=== PATIENT | male | born 1980 | race Caucasian/White ===

== ENCOUNTER → 2018-03-09 13:00 | Outpatient (CLI) | payer OTHER, SELFPAY ==
[2018-03-09 14:41] LABS: Vitamin B12 495 pg/mL (211-911)
[2018-03-15 15:22] LABS: Testosterone, % Free 2.73 % (1.50-4.20); Testosterone, Free 14.55 ng/dL (5.00-21.00)
[2018-03-16 11:15] LABS: Testosterone, Total 533 ng/dL (264-916)
== END ==
PROVIDERS: Family Provider Family Medicine; PCP Family Medicine; Visit Provider Family Medicine
DX: N52.9 Male erectile dysfunction, unspecified (principal); F32.89 Other specified depressive episodes
CPT/HCPCS: 36415; 81291; 82607; 82746; 84402; 84403

== ENCOUNTER → 2018-08-10 16:21 | Outpatient (CLI) | payer OTHER, SELFPAY ==
[2016-06-24 17:11] VITALS: BMI 30.7
[2018-08-10 18:51] LABS: ALB/GLOB Ratio 1.2 RATIO (0.9-2.4); AST(SGOT) 13 U/L (15-37); Alanine Aminotransfer ALT/SGPT 24 U/L (16-61); Albumin, Serum 4.1 g/dL (3.2-5.0); Alkaline Phosphatase 94 U/L (45-117); Anion Gap 8 (5-15); BUN 9 mg/dL (7-18); BUN/Creat Ratio 8.6 RATIO (10-20); CRP < 2.90 mg/L (0.0-3.0); Calcium,Total 8.7 mg/dL (8.5-10.1); Chloride 106 mmol/L (98-107); Creatinine, Serum 1.05 mg/dL (0.70-1.30); EST Glomerular Filtration Rate 84 mL/min (>60); Est Glom Filt Rate - Afr Amer 102 mL/min (>60); Ferritin 169 ng/mL (26-388); Globulin 3.5 g/dL (2.2-4.2); Glucose 79 mg/dL (74-106); Lipase 142 U/L (73-393); Potassium 3.9 mmol/L (3.5-5.1); Protein, Total 7.6 g/dL (6.4-8.2); Sodium Level 143 mmol/L (136-145)
[2018-08-10 19:15] LABS: Hematocrit 45.5 % (40-54); Hemoglobin 14.7 g/dl (13.0-16.5); Mean Corp Hgb Conc 32.3 g/gl (32-36); Mean Corpuscular Hgb 28.5 pg (27.0-32.0); Mean Corpuscular Volume 88.2 fL (80-94); Mean Platelet Vol. 10.1 fl (6.2-12.0); Platelet Count 266 K/mm3 (150-450); RBC Distribution Width CV 12.6 % (11.6-14.6); RBC Distribution Width SD 40.5 fl (35.1-43.9); Red Blood Count 5.16 M/mm3 (4.6-6.2); White Blood Count 9.7 K/mm3 (4.4-11.0)
[2018-08-10 19:18] LABS: Scan Indicated on CBC? Y/N NO
[2018-08-12 10:32] LABS: H. Pylori Antibody (IgG) 0.19 (0.00-0.79)
== END ==
PROVIDERS: Family Provider Family Medicine; PCP Family Medicine; Referring Provider Family Medicine; Visit Provider Family Medicine
DX: R10.13 Epigastric pain (principal)
CPT/HCPCS: 36415; 80053; 82728; 83690; 84443; 85027; 86140; 86677

== ENCOUNTER → 2018-08-13 10:42 | Outpatient (CLI) | payer OTHER, SELFPAY ==
--- NOTE | 2018-08-13 10:44 | US_ITS ---
STUDY: ABDOMINAL ULTRASOUND REASON FOR EXAM: Male, 38 years old. Dyspepsia TECHNIQUE: Transabdominal ultrasound was performed with real-time and static linder scale imaging. TECHNICAL QUALITY: Adequate. COMPARISON: None. FINDINGS: Liver: The liver measures 12.2 cm. There is increased echogenicity of the liver. The bile ducts are within normal limits. There is hepatic color flow. The direction of portal flow is hepatopetal. There is no demonstrated mass lesion. Portal vein measurement: Gallbladder: Normal distended gallbladder. The gallbladder wall measures 2 mm. There is a negative sonographic Sharma's sign. There is no pericholecystic fluid. There are no gallstones. Common Bile Duct (C.B.D.): The common bile duct measures 2.7 mm. Pancreas: There is normal echogenicity of the visualized pancreas. There is no demonstrated pancreatic mass or cyst. Spleen: Normal size of the spleen. The spleen measures 12 cm. Right Kidney: Normal size of the right kidney. The right kidney measures 11.5 cm. Normal renal cortex. The right cortex measures 1.9 cm. There is no demonstrated renal mass or cyst. There is no right hydronephrosis. There is a nonshadowing calculus measuring 3 mm. Left Kidney: Normal size of the left kidney. The left kidney measures 11.3 cm. Normal renal cortex. The left cortex measures 1.7 cm. There is no demonstrated renal mass or cyst. There is no left hydronephrosis. Aorta: Nonaneurysmal I.V.C.: The IVC is patent. There is no ascites. US/Abdomen Complete IMPRESSION: 1. No gallstones or biliary dilation. 2. Increased echo pattern of the liver is nonspecific but most commonly associated with hepatic steatosis. 3. Incomplete visualization of the pancreas. 4. 3 mm right renal calcification may represent nonobstructing calculus. Electronically Signed: Mahamed Hubbard MD at 20:36 EST , Service support ,
== END ==
PROVIDERS: Family Provider Family Medicine; PCP Family Medicine; Referring Provider Family Medicine; Visit Provider Family Medicine
DX: R10.13 Epigastric pain (principal)
CPT/HCPCS: 76700

== ENCOUNTER → 2018-08-29 09:10 | Outpatient (CLI) | payer OTHER, SELFPAY ==
[2018-08-18 15:28] VITALS: BMI 28.6
--- NOTE | 2018-08-29 09:12 | NM_ITS ---
CLINICAL: 38-year-old male with reported history of postprandial nausea. RADIONUCLIDE HEPATOBILIARY SCINTIGRAPHY COMPARISON: Abdominal ultrasound report 08/13/2018 FINDINGS: Following the intravenous administration of 5.6 mCi of 99m Tc Mebrofenin, hepatobiliary images reveal: 1. Relatively prompt and homogeneous radiopharmaceutical concentration is noted by a normal sized liver. No parenchymal defects are identified. 2. Gallbladder activity is identified at 5 minutes post radiopharmaceutical administration. 3. Small intestinal tract is observed at 30 minutes following tracer injection. 4. Washout of the radiopharmaceutical by the hepatic parenchyma appears qualitatively normal. Cholecystokinin (0.02 ug/kg) was administered intravenously over a 30-minute period. The post CCK gallbladder ejection fraction calculated at 31 minutes following Cholecystokinin administration was noted to be 26.0 % (normal greater than 35%). [place]/Hepatobilliary Img w/Pharm Int IMPRESSION: 1. ABNORMAL 99m Tc Mebrofenin hepatobiliary imaging examination with Cholecystokinin. A. A gallbladder ejection fraction calculated to be less than 35% following the administration of Cholecystokinin is consistent with the presence of functional hepatobiliary disease (gallbladder and/or sphincter of Oddi dyskinesia) and/or organic hepatobiliary disease (chronic acalculous cholecystitis and/or cystic duct syndrome) in patients with intermediate to high pretest probabilities of hepatobiliary illness. (Karmen Baires et al, Journal of Nuclear Medicine 32:1695, 1990). Electronically Signed: Rojas Bonilla DO at 23:39 EST Tel , Service support ,
--- OUTSIDE RECORDS SUMMARY | 2018-10-31 16:16 | XMS RPT_ITS ---
:1980 Author Organization [facility] Care Team Providers Name Role Phone Gómez Crane Attending Unavailable Crane, Gómez Referring Unavailable Crane, Gómez Primary Care Unavailable Crane, Gómez Attending Unavailable Crane, Gómez Referring Unavailable Crane, Gómez Primary Care Unavailable Colby, Vic Attending Unavailable Crane, Gómez Referring Unavailable Chamisal, Vic Attending Unavailable Colby, Vic Referring Unavailable Crane, Gómez Primary Care Unavailable Colby, Vic Attending Unavailable Crane, Gómez Referring Unavailable Crane, Gómez Attending Unavailable Crane, Gómez Referring Unavailable Crane, Gómez Primary Care Unavailable PROBLEMS PROBLEMS DATE TYPE CONDITION / CODE ATTENDING STATUS SOURCE 09/02/2018 Unknown K82.8 - Other ColbyVic anton Active [place] specified Community diseases of Hospital gallbladder / Repository K82.8(ICD-10) 09/02/2018 Unknown R11.0 - Nausea / ColbyVic anton Active [place] R11.0(ICD-10) Community Hospital Repository 09/02/2018 Unknown R14.0 - Abdominal ColbyVic Active [place] distension Community (gaseous) / Hospital R14.0(ICD-10) Repository 09/02/2018 Unknown R63.4 - Abnormal Colby, Vic Active [facility] weight loss / Community R63.4(ICD-10) Hospital Repository 08/18/2018 Unknown R10.11 - Right Vic Bowman Active [place] upper quadrant Community pain / Hospital R10.11(ICD-10) Repository 08/10/2018 Unknown R10.13 - Gómez Crane Active [facility] Epigastric pain / Community R10.13(ICD-10) Hospital Repository 03/09/2018 Unknown N52.9 - Male Farhad Craneic Active [facility] erectile Community dysfunction, Hospital unspecified / Repository N52.9(ICD-10) 03/09/2018 Unknown F32.89 - Other Royce Gómez Active [facility] specified Community depressive Hospital episodes / Repository F32.89(ICD-10) PROCEDURES PROCEDURES No Procedure Records FoundRESULTS RESULTS SURGERY VISIT REPORT Observed: 09/02/2018 Status: F Source: [place] 9:07 AM [facility] [facility] [place] [address] [place] [address]. [address] [place] [address] OFFICE VISIT Date of Service: 09/02/18 MR#: [id number] Acct: [id number] Name: VIANEY GOLDEN Rep #: [id number] : 1980 Provider: Vic Bowman MD Age/Sex: 38/M Location: [facility] Status: Signed Intake Vital Signs09/02/18 Body Mass Index (BMI) 28.6 09/02/18 Height 5 ft 10.25 in 09/02/18 Weight: 201 lb Intake Visit Reasons: HIDA SCAN Results 08/29 Chief Complaint: epigastric pressure, nausea, bloating Confectionery Cooker Required: No Is patient in pain?: No Allergies No Known Allergies Allergy (Verified 09/02/18 08:52) Medications ranitidine 150 mg tablet 150 mg PO DAILY PRN 08/18/18 [History Confirmed 09/02/18] PFSH Medical History Anxiety (Acute) Asthma (Acute) Change in bowel habits (Acute) GERD (gastroesophageal reflux disease) (Acute) Surgical History History of oral surgery (Acute) Family History Father Hypertension Social History Smoking Status: Never smoker HPI HPI HPI: VIANEY GOLDEN, is a 38 M who presents to the office today for evaluation of nausea after meals. In addition he is also been very bloated and gassy. This is been going on for the last few months. He has not been complaining of any pain going into his back. He states it really does not matter what he eats the symptoms are almost always present. He has also had approximately a 20 pound weight loss in the last 3 months secondary to food aversion. He has been complaining of some epigastric pressure. He was given a prescription for Zantac but has not taken this. He has not had any previous endoscopies. Patient recently underwent a HIDA scan with ejection fraction showing the ejection fraction to be 26%. I am now going to recommend that he undergo a laparoscopic cholecystectomy. ROS General General: Yes weight change and fatigue; no appetite, colon cancer, breast cancer or weakness HEENT HEENT: No difficulty swallowing, eye injury, eye surgery, swollen glands or hoarseness Endo Endocrine: No thyroid disease, diabetes mellitus, thyroid cancer, Hair loss, heat intolerance or cold intolerance Cardio Cardiovascular: No murmur, pacemaker, heart disease, atrial fibrillation, high blood pressure, heart attack, heart stent, palpitations, shortness of breat with exertion or chest pain Psych Psychiatric: Yes anxiety; no depression or hearing voices Resp Respiratory: No shortness of breath, No sleep apnea, No cough, No COPD, Yes asthma, No emphysema, No wheezing Gastro Gastrointestinal: Yes abdominal pain, Yes nausea or vomiting, Yes diarrhea, Yes constipation, No blood in stool, Yes acid reflux, No hemorrhoids, No ulcers, No gallbladder problem, No black,tarry stools Ki Hematologic: No blood thinners, No blood disorders, No bleeding, No anemia, No blood clots Neuro Neurologic: No weakness Exam Const General: well developed, no acute distress, well hydrated Orientation: oriented to person, oriented to place, oriented to time [facility] Head: normocephalic, atraumatic Ears: external ears normal Mouth: moist mucous membranes Eyes Sclera: sclerae normal Pupils: normal by confrontation Neck Neck: no lymphadenopathy noted Neck mass: No Thyroid: symmetrical, thyroid normal Chest Chest palpation AND inspection: normal inspection of the chest Resp Effort AND Inspection: normal respiratory effort Auscultation: clear to auscultation bilaterally Percussion: percussion normal Cardio Rate: regular rate Rhythm: regular rhythm Heart Sounds: no murmurs GI Palpation: soft, tender, no masses, no hepatosplenomegaly Auscultation: normal bowel sounds Rectal Exam: other Other: Rectal exam deferred. Extrem General: no clubbing, cyanosis or edema, normal to inspection Assessment AND Plan Problems 1. Biliary dyskinesia K82.8 2. Nausea R11.0 3. Abdominal bloating R14.0 4. Weight loss, non-intentional R63.4 Plan Reviewed the anatomy with the patient and discussed the procedure: laparoscopic cholecystectomy with possible cholangiograms, possible open. Review risks including but not limited to bleeding, infection, hernia, bile leak, retained gallstones requiring another procedure ERCP- Endoscopic Retrograde Cholangiopancreatography, injury to another organ (bile ducts, common bile duct, small bowel, etc.) and conversion to an open procedure. All questions were answered. Coding Level of Care Code Off vis,est,level 3 Diagnoses Biliary dyskinesia K82.8 Nausea R11.0 Abdominal bloating R14.0 Weight loss, non-intentional R63.4 09/02/18 0907 <Electronically signed by Vic Bowman MD> Date Vic Bowman MD Cosigner Signature: Date (if applicable) CC: Gómez Crane MD HEPATOBILLIARY IMG Observed: 08/29/2018 Status: F Source: [place] W/PHARM INT 9:12 AM [facility] [place] [facility] Imaging Services [facility] [place] [address] Hepatobilliary Img w/Pharm Int MR#: [id number] Acct: [id number] Name: VIANEY GOLDEN Rep #: [id number] : 1980 M 38 From: Rojas Bonilla DO PCP: Gómez Crane MD Status: REG CLI Study: Hepatobilliary Img w/Pharm Int Date of Exam: 08/29/18 Exam# [id number] Ordering Dr: Ayde Logan PA-C CLINICAL: 38-year-old male with reported history of postprandial nausea. RADIONUCLIDE HEPATOBILIARY SCINTIGRAPHY COMPARISON: Abdominal ultrasound report 08/13/2018 FINDINGS: Following the intravenous administration of 5.6 mCi of 99m Tc Mebrofenin, hepatobiliary images reveal: 1. Relatively prompt and homogeneous radiopharmaceutical concentration is noted by a normal sized liver. No parenchymal defects are identified. 2. Gallbladder activity is identified at 5 minutes post radiopharmaceutical administration. 3. Small intestinal tract is observed at 30 minutes following tracer injection. 4. Washout of the radiopharmaceutical by the hepatic parenchyma appears qualitatively normal. Cholecystokinin (0.02 ug/kg) was administered intravenously over a 30-minute period. The post CCK gallbladder ejection fraction calculated at 31 minutes following Cholecystokinin administration was noted to be 26.0 % (normal greater than 35%). NM/Hepatobilliary Img w/Pharm Int IMPRESSION: 1. ABNORMAL 99m Tc Mebrofenin hepatobiliary imaging examination with Cholecystokinin. A. A gallbladder ejection fraction calculated to be less than 35% following the administration of Cholecystokinin is consistent with the presence of functional hepatobiliary disease (gallbladder and/or sphincter of Oddi dyskinesia) and/or organic hepatobiliary disease (chronic acalculous cholecystitis and/or cystic duct syndrome) in patients with intermediate to high pretest probabilities of hepatobiliary illness. (Karmen Baires et al, Journal of Nuclear Medicine 32:1695, 1991). Electronically Signed: Rojas Bonilla DO at 23:39 EST Tel , Service support , CC: Ayde Logan PA-C; Vic Bowman MD; Gómez Crane MD Shaft Sinker: Signed SURGERY VISIT REPORT Observed: 08/18/2018 Status: F Source: [place] 4:21 PM [facility] [place] [facility] [address] [place] [address]. [address] [place] [address] OFFICE VISIT Date of Service: 08/18/18 MR#: [id number] Acct: [id number] Name: VIANEY GOLDEN Rep #: [id number] : 1980 Provider: Vic Bowman MD Age/Sex: 38/M Location: [facility] Status: Signed Intake Vital Signs08/18/18 Blood Pressure 168/108 H Intake Visit Reasons: EGD Consult Chief Complaint: epigastric pressure, nausea, bloating Confectionery Cooker Required: No Is patient in pain?: No Allergies No Known Allergies Allergy (Verified 08/18/18 15:29) Medications ranitidine 150 mg tablet 150 mg PO DAILY PRN 08/18/18 [History Confirmed 08/18/18] PFSH Medical History Anxiety (Acute) Asthma (Acute) Change in bowel habits (Acute) GERD (gastroesophageal reflux disease) (Acute) Surgical History History of oral surgery (Acute) Family History Father Hypertension Social History Smoking Status: Never smoker HPI HPI HPI: VIANEY GOLDEN, is a 38 M who presents to the office today for for evaluation of nausea after meals. In addition he is also been very bloated and gassy. This is been going on for the last few months. He has not been complaining of any pain going into his back. He states it really does not matter what he eats the symptoms are almost always present. He has also had approximately a 20 pound weight loss in the last 3 months secondary to food aversion. He has been complaining of some epigastric pressure. He was given a prescription for Zantac but has not taken this. He has not had any previous endoscopies. He has never had a history of gastric ulcers in the past. He has not been on any NSAIDs and he has no alcohol etiology for this. Gallbladder ultrasound was performed which showed a normal distended gallbladder. The gallbladder wall measured 2 mm. There is a negative sonographic Sharma sign. There was no pericholecystic fluid. And there were no gallstones. His common bile duct measured 2.7 mm. ROS General General: Yes weight change and fatigue; no appetite, colon cancer, breast cancer or weakness HEENT HEENT: No difficulty swallowing, eye injury, eye surgery, swollen glands or hoarseness Endo Endocrine: No thyroid disease, diabetes mellitus, thyroid cancer, Hair loss, heat intolerance or cold intolerance Cardio Cardiovascular: No murmur, pacemaker, heart disease, atrial fibrillation, high blood pressure, heart attack, heart stent, palpitations, shortness of breat with exertion or chest pain Psych Psychiatric: Yes anxiety; no depression or hearing voices Resp Respiratory: No shortness of breath, No sleep apnea, No cough, No COPD, Yes asthma, No emphysema, No wheezing Gastro Gastrointestinal: Yes abdominal pain, Yes nausea or vomiting, Yes diarrhea, Yes constipation, No blood in stool, Yes acid reflux, No hemorrhoids, No ulcers, No gallbladder problem, No black,tarry stools Ki Hematologic: No blood thinners, No blood disorders, No bleeding, No anemia, No blood clots Neuro Neurologic: No weakness Exam Const General: well developed, no acute distress, well hydrated Orientation: oriented to person, oriented to place, oriented to time [facility] Head: normocephalic, atraumatic Ears: external ears normal Mouth: moist mucous membranes Eyes Sclera: sclerae normal Pupils: normal by confrontation Neck Neck: no lymphadenopathy noted Neck mass: No Thyroid: symmetrical, thyroid normal Chest Chest palpation AND inspection: normal inspection of the chest Resp Effort AND Inspection: normal respiratory effort Auscultation: clear to auscultation bilaterally Percussion: percussion normal Cardio Rate: regular rate Rhythm: regular rhythm Heart Sounds: no murmurs GI Palpation: soft, tender, no masses, no hepatosplenomegaly Rectal Exam: other Other: A Hernia [] on exam. Rectal exam deferred. Extrem General: no clubbing, cyanosis or edema, normal to inspection Assessment AND Plan Problems 1. Nausea R11.0 2. Abdominal bloating R14.0 3. Weight loss, non-intentional R63.4 Plan At this point I think the best thing to do is obtain a HIDA scan with ejection fraction. If this is obviously abnormal then removal of his gallbladder would seem appropriate. However if it is normal then I think proceeding with an upper and lower endoscopy with random biopsies would be appropriate. I will see him back after the HIDA scan with ejection for him. Orders Orders: Coding Level of Care Code Off vis,new,level 3 Diagnoses Nausea R11.0 Abdominal bloating R14.0 Weight loss, non-intentional R63.4 08/18/18 1621 <Electronically signed by Vic Bowman MD> Date Vic Bowman MD Cosigner Signature: Date (if applicable) CC: Gómez Crane MD ABDOMEN COMPLETE Observed: 08/13/2018 Status: F Source: [place] 10:45 AM [facility] [facility] [place] [facility] Imaging Services [address] [place] [address] Abdomen Complete MR#: [id number] Acct: [id number] Name: VIANEY GOLDEN Adalberto Rep #: [id number] : 1980 M 38 From: Mahamed Hubbard MD PCP: Gómez Crane MD Status: REG CLI Study: Abdomen Complete Date of Exam: 08/13/18 Exam# [id number] Ordering Dr: Gómez Crane MD STUDY: ABDOMINAL ULTRASOUND REASON FOR EXAM: Male, 38 years old. Dyspepsia TECHNIQUE: Transabdominal ultrasound was performed with real-time and static linder scale imaging. TECHNICAL QUALITY: Adequate. COMPARISON: None. FINDINGS: Liver: The liver measures 12.2 cm. There is increased echogenicity of the liver. The bile ducts are within normal limits. There is hepatic color flow. The direction of portal flow is hepatopetal. There is no demonstrated mass lesion. Portal vein measurement: Gallbladder: Normal distended gallbladder. The gallbladder wall measures 2 mm. There is a negative sonographic Sharma's sign. There is no pericholecystic fluid. There are no gallstones. Common Bile Duct (C.B.D.): The common bile duct measures 2.7 mm. Pancreas: There is normal echogenicity of the visualized pancreas. There is no demonstrated pancreatic mass or cyst. Spleen: Normal size of the spleen. The spleen measures 12 cm. Right Kidney: Normal size of the right kidney. The right kidney measures 11.5 cm. Normal renal cortex. The right cortex measures 1.9 cm. There is no demonstrated renal mass or cyst. There is no right hydronephrosis. There is a nonshadowing calculus measuring 3 mm. Left Kidney: Normal size of the left kidney. The left kidney measures 11.3 cm. Normal renal cortex. The left cortex measures 1.7 cm. There is no demonstrated renal mass or cyst. There is no left hydronephrosis. Aorta: Nonaneurysmal I.V.C.: The IVC is patent. There is no ascites. US/Abdomen Complete IMPRESSION: 1. No gallstones or biliary dilation. 2. Increased echo pattern of the liver is nonspecific but most commonly associated with hepatic steatosis. 3. Incomplete visualization of the pancreas. 4. 3 mm right renal calcification may represent nonobstructing calculus. Electronically Signed: Mahamed Hubbard MD at 20:36 EST , Service support , CC: Gómez Crane MD Shaft Sinker: Signed COMPREHENSIVE METABOLIC Collected: 08/10/2018 Status: F Source: [place] PERLITA 4:26 PM [facility] [place] TYPE CODE TESTS RESULT OUT OF RANGE REFERENCE UNITS LAB L501.0100 74-106 mg/dL Normal GLU 79 Result Comment: Please note revised GLUCOSE reference range effective 2017. LAB L501.1000 7-18 mg/dL Normal BUN 9 LAB L501.1100 0.70-1.30 mg/dL Normal CREAT,SERUM 1.05 Result Comment: The validity of the calculated GFR AND GFRAA in patients over 70 years has not been determined. Clinical correlation is essential. LAB L501.1110 >60 mL/min Normal EST GFR 84 Result Comment: Non- GFR Calc LAB L501.1115 >60 mL/min Normal EST GFR - AA 102 Result Comment: GFR Calc LAB L501.1300 10-20 RATIO Low BUN/CRE 8.6 LAB L501.1500 6.4-8.2 g/dL Normal T PROT 7.6 LAB L501.1800 3.2-5.0 g/dL Normal ALB 4.1 LAB L501.1950 2.2-4.2 g/dL Normal GLOB 3.5 LAB L501.2000 0.9-2.4 RATIO Normal A/G 1.2 LAB L501.2200 8.5-10.1 mg/dL Normal CA 8.7 LAB L501.4100 15-37 U/L Low AST 13 LAB L501.4305 45-117 U/L Normal ALK P 94 LAB L501.4405 16-61 U/L Normal ALT 24 LAB L501.4600 0.20-1.00 mg/dL Normal T BILI 0.60 LAB L501.5300 136-145 mmol/L Normal NA 143 LAB L501.5600 3.5-5.1 mmol/L Normal K 3.9 LAB L501.5900 98-107 mmol/L Normal CL 106 LAB L501.6100 21.0-32.0 mmol/L Normal CO2 29.0 LAB L501.6200 5-15 Normal GAP 8 Performed By: #### L500.4050, L501.2450, L501.9520, L503.6550, L100.0500 #### [facility] [address] [place], [address] #### L3100.1900 #### [facility] (refer to report for specific site) refer to report for address and phone number LIPASE Collected: 08/10/2018 Status: F Source: [place] 4:26 PM [facility] TYPE CODE TESTS RESULT OUT OF RANGE REFERENCE UNITS LAB L501.2450 73-393 U/L Normal LIPASE 142 Performed By: #### L500.4050, L501.2450, L501.9520, L503.6550, L100.0500 #### [facility] [address] [place], [address] #### L3100.1900 #### [facility] (refer to report for specific site) refer to report for address and phone number THYROID STIM HORMONE Collected: 08/10/2018 Status: F Source: [place] (TSH) 4:26 PM [facility] [place] TYPE CODE TESTS RESULT OUT OF RANGE REFERENCE UNITS LAB L501.9520 0.358-3.74 uIU/mL Normal TSH 1.10 Performed By: #### L500.4050, L501.2450, L501.9520, L503.6550, L100.0500 #### [facility] [address] [place], [place], [id number] #### L3100.1900 #### [facility] (refer to report for specific site) refer to report for address and phone number FERRITIN Collected: 08/10/2018 Status: F Source: [place] 4:26 PM [facility] TYPE CODE TESTS RESULT OUT OF RANGE REFERENCE UNITS LAB L503.6550 26-388 ng/mL Normal FERRITIN 169 Performed By: #### L500.4050, L501.2450, L501.9520, L503.6550, L100.0500 #### [facility] [address] [place], [address] #### L3100.1900 #### [facility] (refer to report for specific site) refer to report for address and phone number CBC-COMPLETE BLOOD CNT Collected: 08/10/2018 Status: F Source: [place] NO DIFF 4:26 PM [facility] [place] TYPE CODE TESTS RESULT OUT OF RANGE REFERENCE UNITS LAB L100.1000 4.4-11.0 K/mm3 Normal WBC 9.7 LAB L100.1200 4.6-6.2 M/mm3 Normal RBC 5.16 LAB L100.1300 13.0-16.5 g/dl Normal HGB 14.7 LAB L100.1400 40-54 % Normal HCT 45.5 LAB L100.1500 80-94 fL Normal MCV 88.2 LAB L100.1600 27.0-32.0 pg Normal MCH 28.5 LAB L100.1700 32-36 g/gl Normal MCHC 32.3 LAB L100.1810 11.6-14.6 % Normal RDW CV 12.6 LAB L100.1820 35.1-43.9 fl Normal RDW SD 40.5 LAB L100.1900 150-450 K/mm3 Normal PLT 266 LAB L100.2000 6.2-12.0 fl Normal MPV 10.1 Performed By: #### L500.4050, L501.2450, L501.9520, L503.6550, L100.0500 #### [facility] [address] [place], [place], [id number] #### L3100.1900 #### [facility] (refer to report for specific site) refer to report for address and phone number H. PYLORI ANTIBODY Collected: 08/10/2018 Status: F Source: [place] (IGG) 4:26 PM [facility] [place] TYPE CODE TESTS RESULT OUT OF RANGE REFERENCE UNITS LAB L3100.1900 0.00-0.79 Normal H.PYLORI 0.19 [id number] Result Comment: Result Units: Index Value Negative <0.80 Equivocal 0.80 - 0.89 Positive >0.89 Performed at: [address] [id number] State Trooper: Isaias Baltazar PhD, Phone: [phone] Performed By: #### L500.4050, L501.2450, L501.9520, L503.6550, L100.0500 #### [facility] [address] [place] [address], [address] #### L3100.1900 #### [facility] (refer to report for specific site) refer to report for address and phone number CRP Collected: 08/10/2018 Status: F Source: [place] 4:26 PM [facility] [place] [facility] [place] TYPE CODE TESTS RESULT OUT OF RANGE REFERENCE UNITS LAB L501.6710 0.0-3.0 mg/L Normal < 2.90 C-REACTIVE PROT Result Comment: C-Reactive Protein (CRP) provides useful information for the diagnosis, therapy and monitoring of inflammatory processes and associated diseases. For the evaluation of Relative Risk for Cardiovascular Disease, a High Sensitivity CRP (HSCRP) should be ordered. Performed By: #### L501.6710 #### [facility] [address] [place], [address] VITAMIN B12 Collected: 03/09/2018 Status: F Source: [place] 1:07 PM [facility] [place] Order Comment: Order Date: 03/09/18 Order Info: 2132-9 - B12 TYPE CODE TESTS RESULT OUT OF RANGE REFERENCE UNITS LAB L503.0105 211-911 pg/mL Normal Vitamin B12 495 Performed By: #### L503.0105, L506.0250 #### [facility] [address] [place], [address] #### L3100.5310 #### [facility] (refer to report for specific site) refer to report for address and phone number FOLATES, (FOLIC ACID) Collected: 03/09/2018 Status: F Source: [place] 1:07 PM [facility] [place] Order Comment: Order Date: 03/09/18 Order Info: 2284-8 - FOLS Comments: MTHFR gene testing Is Patient Taking Vitamins or Folic Acid Supplements? N TYPE CODE TESTS RESULT OUT OF RANGE REFERENCE UNITS LAB L506.0250 3.1-55.4 ng/mL Normal FOLATES 4.30 Result Comment: Slight Hemolysis, Result may be falsely increased. Performed By: #### L503.0105, L506.0250 #### [facility] [address] [place], [address] #### L3100.5310 #### [facility] (refer to report for specific site) refer to report for address and phone number TESTOSTERONE, TOTAL / Collected: 03/09/2018 Status: F Source: [place] FREE 1:07 PM [facility] [place] Order Comment: Order Date: 03/09/18 Order Info: 0024-1 - TESTF Has Patient had X-rays with Contrast this admission? N Comments: MTHFR gene testing TYPE CODE TESTS RESULT OUT OF RANGE REFERENCE UNITS LAB L3100.5320 264-916 ng/dL Normal 533 TESTOSTER,TO BILLY Result Comment: Adult male reference interval is based on a population of healthy nonobese males (BMI <30) between 19 and 39 years old. Nate et.al. JCEM 2017,102;2609-1568. PMID: [id number]. LAB L3100.5340 5.00-21.00 ng/dL TESTOSTER,FREE Normal 14.55 LAB L3100.5360 1.50-4.20 % TESTOSTER %FREE Normal 2.73 Performed By: #### L503.0105, L506.0250 #### [facility] [address] [place], [address] #### L3100.5310 #### [facility] (refer to report for specific site) refer to report for address and phone number MTHFR DNA VARIANT Collected: 03/09/2018 Status: F Source: [place] 1:07 [facility] [place] REPOS[facility] Order Comment: Order Date: 03/09/18 Order Info: 0024-1 - TESTF Has Patient had X-rays with Contrast this admission? N Comments: MTHFR gene testing TYPE CODE TESTS RESULT OUT OF RANGE REFERENCE UNITS LAB L4600.0205 . 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 The MTHFR S5065E variant was not identified. Homozygosity for the C677T mutation confers an increased risk for the development of hyperhomocysteinemia when the individual is deficient in folate, vitamin B6, or vitamin B12. A fasting homocysteine level should be measured. Hyperhomocysteinemia may also occur due to mutations in enzymes other than MTHFR that are involved in homocysteine metabolism, or arise due to acquired factors. If homocysteine falls within the normal range, there is no increased risk for venous thromboembolism or in women, recurrent loss. Elevated homocysteine may be associated with a mildly increased risk for venous thrombosis, coronary artery disease and recurrent loss. Women homozygous for MTHFR C677T also have a modestly increased risk of neural tube defects with , with a greater risk if the fetus is also homozygous for MTHFR C677T. Other risk factors may be detected through systematic clinical laboratory analysis. Methylenetetrahydrofolate reductase (MTHFR) is a combs enzyme in the folate pathway and is responsible for the metabolism of homocysteine. There are two common variants in the MTHFR gene, c.655c>T (p.Oye330Xwhb), referred to as C677T, and c.1286A>C (p.Bzk337Vlt), referred to as F5533F. Individuals homozygous for C677T (two copies of the variant), have decreased activity of the MTHFR enzyme and a predisposition to hyperhomocysteinemia, particularly when deficient in folate. Hyperhomocysteinemia is a risk factor for venous thrombosis and coronary artery disease and is associated with an increased risk of open neural tube defects. The C677T variant does not independently increase risk of these conditions in the absence of hyperhomocysteinemia. The J4999X variant is not associated with elevated homocysteine levels unless a C677T variant is also present; however, the clinical significance of heterozygosity for both C677T and P5195Z is controversial. Population data suggest that these two variants are not present on the same chromosome, but rare exceptions have been reported of triple variant MTHFR genotypes (ie. homozygous for one variant and heterozygous for the other). Homozygosity for C677T has an estimated frequency of 10% to 15% in Caucasians and 25% in Hispanics. Additional information: Dietary folic acid, B6 and B12 supplementation has been suggested to lower homocysteine levels in some people. Folic acid supplementation has been shown to reduce the occurrence of neural tube defects. Genetic counselors are available for health care providers to discuss results at [phone]. Methodology: DNA analysis of the MTHFR gene was performed by PCR amplification followed by restriction analysis. The diagnostic sensitivity is >99% for both. Molecular-based testing is highly accurate, but as in any laboratory test, rare diagnostic errors may occur. All test results must be combined with clinical information for the most accurate interpretation. This test was developed and its performance characteristics determined by [facility]. It has not been cleared or approved by the Food and Drug Administration. References: Jose LD, Shane Q. Am J Epidemiol 2000; 151(9):862-877. Ashley MM, Galileo JA. Arch Pathol Lab Med 2007; 131(6):872-884. Frosst P et al. Catherine Katey 1995; 10(1):111-113. Keaton SE et al. Katey Med 2013; 15(2):153-156. Cr C et al. Obstet Gynecol 2011; 118(3):730-740. Víctor B et al. Eur J Epidemiol 2013; 28(8):621-647. Dalila Obrien, PhD, FACMG Saundra West, PhD, FACMG Valentine Ordoñez M.S., PhD, FACMG Jennifer Mckeon, PhD, FACMG Tawana Watson, PhD, FACMG Jez Butts, PhD, FACMG Performed at: CB - [facility] [address] [id number] State Trooper: Isaias Baltazar PhD, Phone: [phone] Performed at: - [facility] [address] [id number] State Trooper: Conor Wasserman MD, Phone: [phone] Performed at: - [facility] [address], [place] [id number] State Trooper: Pastora Owusu MD, Phone: [phone] Performed By: #### [id number] #### [facility] (refer to report for specific site) refer to report for address and phone number ALLERGIES ALLERGIES DATE TYPE / CODE NAME / CODE REACTION SEVERITY SOURCE 09/02/2018 Drug No Known Unknown [facility] Allergy/4160 Allergies/F00 Hospital [address]4637(SNOMED [id number](RXNOR Repository CT) M) ENCOUNTERS ENCOUNTERS ADMIT/DISCHARGE ACCOUNT ADMITTING ENCOUNTER LOCATION SOURCE NUMBER CLASS 09/02/2018/ [id number] Ambulatory BMSBuilding:B [place] 9 8 [place] Repository 08/29/2018 [id number] Ambulatory [place] 9 [facility] ing:[place] Repository 08/18/2018/ [id number] Ambulatory BMSBuilding:B [place] 9 6 [facility] Repository 08/13/2018 [id number] Ambulatory [place] 5 [facility] ing:[place] Repository 08/10/2018 [id number] Ambulatory [place] 5 [facility] 03/09/2018 [id number] Ambulatory [place] 3 [facility] ing:[facility] Repository PAYERS PAYERS ENCOUNTER GUARANTOR PAYER SUBSCRIBER SOURCE 09/02/2018 VIANEY [place] Primary VIANEY D [place] [id number] JALEEL Insurance:[employer]ULTCAREPol GADDISDOB: [facility] icy Number: [id number] [facility] , [place] [address]Bvr: [id number] Repository Date:[id number] () [address], [place] [address]ZG: 09/02/2018 Secondary NOT GIVENUNK [place] Insurance:SELF PAY [facility] Number: Effective Repository Date:2018-08-31 08/29/2018 VIANEY D Primary VIANEY D [place] [id number] JALEEL Insurance:AULTCAREPol GADDISDOB[facility] Number[facility] [id number] [facility] , [place] [address]Vja: [id number] Repository Date:7128-85-14ZW [address] () [address], [place] [address]WG: 08/29/2018 Secondary NOT GIVENUNK [place] Insurance:SELF PAY [facility] Number: Effective Repository Date:2018-08-18 08/18/2018 VIANEY D Primary VIANEY D [place] [id number] JALEEL Insurance:AULTCAREPol GADDISDOB: [facility] icy Number: [id number] [facility] , [place] [address]Pcl: [id number] Repository Date:7239-34-96[address] () [address], [place] [address]QV: 08/18/2018 Secondary NOT GIVENUNK [place] Insurance:SELF PAY [facility] Number: Effective Repository Date:2018-08-16 08/13/2018 VIANEY D Primary VIANEY D [place] [id number] JALEEL Insurance:AULTCAREPol GADDISDOB: [facility] Number: [id number] [facility] [address]Fgs: [id number] Repository Date:0956-41-57HL [address] () [address], [place] [address]MN: 08/13/2018 Secondary NOT GIVENUNK [place] Insurance:SELF PAY [facility] Number: Effective Repository Date:2018-08-10 08/10/2018 VIANEY D Primary VIANEY D [place] [id number] JALEEL Insurance:AULTCAREPol GADDISDOB: [facility] Number: [id number] [facility] [address]Njy: [id number] Repository Date:4099-51-93GT [address] () [address], [place] [address]TO: 08/10/2018 Secondary NOT GIVENUNK [place] Insurance:SELF PAY [facility] Number: Effective Repository Date:2018-08-10 03/09/2018 VIANEY D Primary VIANEY D [place] [id number] JALEEL Insurance:AULTCAREPol GADDISDOB: [facility] Number: [id number] [facility] [address]Rap: [id number] Repository Date:9009-17-34JK [address] () [address], [place] [address]ID: 03/09/2018 Secondary NOT GIVENUNK [place] Insurance:SELF PAY [facility] Number: Effective Repository Date:2018-03-09
== END ==
PROVIDERS: Family Provider Family Medicine; PCP Family Medicine; Referring Provider Surgery; Visit Provider Surgery
DX: R10.11 Right upper quadrant pain (principal)
CPT/HCPCS: 78227; A9537; J2805

== ENCOUNTER → 2019-04-17 | Outpatient (CLI) | payer OTHER, SELFPAY ==
[2018-09-02 08:53] VITALS: BMI 28.6
[2019-04-17 15:25] LABS: Absolute Lymphocyte Count 2.56 X10^3/uL (0.83-4.51); Absolute Neutrophil Count 5.2 X10^3/uL (2.0-7.7); Basophil# 0.04 X10^3/uL; Basophil% 0.5 % (0-1); Eosinophils% 4.6 % (0-5); Hematocrit 49.5 % (40-54); Lymphocyte # 2.56 X10^3/ul (4.0); Lymphocyte % 29.7 % (19-41); Mean Corp Hgb Conc 32.3 g/dL (32-36); Mean Corpuscular Hgb 29.4 pg (27.0-32.0); Mean Platelet Vol. 9.8 fl (6.2-12.0); Monocyte# 0.43 X10^3/uL; NRBC Flagged by Analyzer 0 % (0-5); Neutrophil # 5.15 X10^3/uL (2.7-7.7); Neutrophil % 59.9 % (47-70); Platelet Count 255 K/mm3 (150-450); RBC Distribution Width SD 39.6 fl (35.1-43.9); Red Blood Count 5.44 M/mm3 (4.6-6.2); White Blood Count 8.6 K/mm3 (4.4-11.0)
[2019-04-17 15:41] LABS: ALB/GLOB Ratio 1.1 RATIO (0.9-2.4); AST(SGOT) 15 U/L (15-37); Alanine Aminotransfer ALT/SGPT 22 U/L (16-61); Albumin, Serum 3.9 g/dL (3.2-5.0); Alkaline Phosphatase 91 U/L (45-117); Amylase 93 U/L (25-115); Anion Gap 6 (5-15); BUN 15 mg/dL (7-18); BUN/Creat Ratio 11.6 RATIO (10-20); Bilirubin, Direct 0.17 mg/dL (0.00-0.30); Calcium,Total 8.9 mg/dL (8.5-10.1); Chloride 104 mmol/L (98-107); Creatinine, Serum 1.29 mg/dL (0.70-1.30); EST Glomerular Filtration Rate 66 mL/min (>60); Est Glom Filt Rate - Afr Amer 80 mL/min (>60); Globulin 3.7 g/dL (2.2-4.2); Glucose 94 mg/dL (74-106); Lipase 129 U/L (73-393); Potassium 4.6 mmol/L (3.5-5.1); Protein, Total 7.6 g/dL (6.4-8.2); Sodium Level 139 mmol/L (136-145)
== END | disposition home or self-care (01) ==
LOC: MFPLAB 12:25
PROVIDERS: Family Provider Family Medicine; PCP Family Medicine; Referring Provider Family Medicine; Visit Provider Family Medicine
DX: K81.0 Acute cholecystitis (principal)
CPT/HCPCS: 36415; 80053; 82150; 82248; 83690; 85025

== ENCOUNTER 2019-04-19 11:00 | Day surgery (SDC) | payer OTHER, SELFPAY ==
[2019-04-18 09:29] VITALS: BMI 28.6
[2019-04-19] VITALS (10 sets, daily range): BP systolic 100–143; BP diastolic 59–82; PULSE 52–72; RESP 16; TEMP 36.1–36.9; O2SAT 95–99; BMI 26.9
--- NOTE | 2019-04-19 11:08 | EKG12_ITS ---
Test Reason : PREOP Blood Pressure : / mmHG Vent. Rate : 068 BPM Atrial Rate : 068 BPM P-R Int : 138 ms QRS Dur : 088 ms QT Int : 384 ms P-R-T Axes : 063 046 044 degrees QTc Int : 408 ms Normal sinus rhythm Normal ECG No previous ECGs available Confirmed by FLO MEYER, VICENTE ([id number]), legal editor MING HERNANDEZ ([id number]) on 04/24/2019 3:46:20 PM Referred By: Vic Bowman Confirmed By:DANTE ROSSI MD
[2019-04-19] MEDS: Lactated Ringers 1,000 ML 100 ML IV (11:47)
[2019-04-19 12:13] LABS: Hematocrit 47.3 % (40-54); Hemoglobin 15.8 g/dL (13.0-16.5); Mean Corp Hgb Conc 33.4 g/dL (32-36); Mean Corpuscular Hgb 29.8 pg (27.0-32.0); Mean Corpuscular Volume 89.1 fL (80-94); Mean Platelet Vol. 9.4 fl (6.2-12.0); Platelet Count 225 K/mm3 (150-450); RBC Distribution Width CV 11.9 % (11.6-14.6); RBC Distribution Width SD 38.5 fl (35.1-43.9); Red Blood Count 5.31 M/mm3 (4.6-6.2); White Blood Count 8.5 K/mm3 (4.4-11.0)
--- NOTE | 2019-04-19 12:14 | HP.PCM_ITS ---
History and Physical Date of Admission: 04/19/19 [facility] [address] [place], [place] [id number] OFFICE VISIT Date of Service: 04/18/19 MR#: [id number] Acct: [id number] Name: VIANEY GOLDEN Rep #: [id number] : 1980 Provider: Vic sanchez MD Age/Sex: 39/M Location: [facility] Status: Signed Intake Vital Signs 04/18/19 Body Mass Index (BMI) 28.6 04/18/19 Height 5 ft 10.25 in 04/18/19 Weight: 201 lb 3 oz 04/18/19 Body Mass Index (BMI) 28.6 04/18/19 Blood Pressure 169/97 H 04/18/19 Blood Pressure Location Rt brachial 04/18/19 Blood Pressure Position Sitting 04/18/19 Respiratory Rate 20 H 04/18/19 Pulse Rate 55 L Intake Visit Reasons: Issues w/Gallbladder - same symptoms as before Chief Complaint: discuss lap katy [employer] Equipment Repairer Required: No Is patient in pain?: Yes (ruq into epigastric area) Pain scale (1-10): 6 Allergies No Known Allergies Allergy (Verified 04/18/19 10:40) Medications multivitamin capsule 1 cap PO DAILY 04/18/19 [History Confirmed 04/18/19] PFSH Medical History Anxiety (Acute) Asthma (Acute) Change in bowel habits (Acute) Dyskinesia of gallbladder (Acute) GERD (gastroesophageal reflux disease) (Acute) Surgical History History of oral surgery (Acute) Family History Father Hypertension Social History (Updated 04/18/19 @ 10:43 by Vic Bowman MD) Smoking Status: Never smoker HPI HPI HPI: VIANEY GOLDEN, is a 39 M who presents to the office today for HPI HPI Surgical H&P: Yes HPI: VIANEY GOLDEN, is a 39 M who presents to the office today for Right upper quadrant abdominal pain nausea and vomiting. I seen the patient in the past and evaluated him for biliary dyskinesia At that time he was experiencing In addition he is also been very bloated and gassy. This is been going on for the last few months. He has not been complaining of any pain going into his back. He states it really does not matter what he eats the symptoms are almost always present. He has also had approximately a 20 pound weight loss in the last 3 months secondary to food aversion. He has been complaining of some epigastric pressure. He was given a prescription for Zantac but has not taken this. He has not had any previous endoscopies. Patient recently underwent a HIDA scan with ejection fraction showing the ejection fraction to be 26%. This attack started this past Wednesday and has progressively gotten worse ROS General General: Yes weight change and fatigue; no appetite, colon cancer, breast cancer or weakness HEENT HEENT: No difficulty swallowing, eye injury, eye surgery, swollen glands or hoarseness Endo Endocrine: No thyroid disease, diabetes mellitus, thyroid cancer, Hair loss, heat intolerance or cold intolerance Cardio Cardiovascular: No murmur, pacemaker, heart disease, atrial fibrillation, high blood pressure, heart attack, heart stent, palpitations, shortness of breat with exertion or chest pain Psych Psychiatric: Yes anxiety; no depression or hearing voices Resp Respiratory: No shortness of breath, No sleep apnea, No cough, No COPD, Yes asthma, No emphysema, No wheezing Gastro Gastrointestinal: Yes abdominal pain, Yes nausea or vomiting, Yes diarrhea, Yes constipation, No blood in stool, Yes acid reflux, No hemorrhoids, No ulcers, No gallbladder problem, No black,tarry stools Ki Hematologic: No blood thinners, No blood disorders, No bleeding, No anemia, No blood clots Neuro Neurologic: No weakness Exam Const General: no acute distress, well developed, well hydrated Orientation: oriented to person, oriented to place, oriented to time [facility] Head: normocephalic, atraumatic Ears: external ears normal Mouth: moist mucous membranes Eyes Sclera: sclerae normal Pupils: normal by confrontation Neck Neck: no lymphadenopathy noted Neck mass: No Thyroid: thyroid normal, symmetrical Chest Chest palpation & inspection: normal inspection of the chest Resp Effort & Inspection: normal respiratory effort Auscultation: clear to auscultation bilaterally Percussion: percussion normal Cardio Rate: regular rate Rhythm: regular rhythm Heart Sounds: no murmurs GI Palpation: soft, no hepatosplenomegaly, no masses, tender Auscultation: normal bowel sounds Rectal Exam: other Other: Rectal exam deferred. Extrem General: normal to inspection, no clubbing, cyanosis or edema Assessment & Plan Problems 1. Nausea R11.0 2. Biliary dyskinesia K82.8 3. Abdominal bloating R14.0 Plan Reviewed the anatomy with the patient and discussed the procedure: laparoscopic cholecystectomy with possible cholangiograms, possible open. Review risks including but not limited to bleeding, infection, hernia, bile leak, retained gallstones requiring another procedure ERCP- Endoscopic Retrograde Cholangiopancreatography, injury to another organ (bile ducts, common bile duct, small bowel, etc.) and conversion to an open procedure. All questions were answered. Medications New: multivitamin capsule 1 cap PO DAILY Coding Level of Care Code Off vis,est,level 3 Diagnoses Nausea R11.0 Biliary dyskinesia K82.8 Abdominal bloating R14.0 04/18/19 1043 <Electronically signed by Vic degroot MD> Date _ Vic Bowman MD Cosigner Signature: Date (if applicable) CC: Gómez Crane MD ~ I have re-examined the patient. There are no clinical changes since date of exam.
[2019-04-19 12:32] LABS: ALB/GLOB Ratio 1.2 RATIO (0.9-2.4); AST(SGOT) 15 U/L (15-37); Alanine Aminotransfer ALT/SGPT 21 U/L (16-61); Albumin, Serum 4.1 g/dL (3.2-5.0); Alkaline Phosphatase 87 U/L (45-117); Amylase 73 U/L (25-115); Anion Gap 5 (5-15); BUN 15 mg/dL (7-18); BUN/Creat Ratio 11.7 RATIO (10-20); Calcium,Total 9.1 mg/dL (8.5-10.1); Chloride 106 mmol/L (98-107); Creatinine, Serum 1.28 mg/dL (0.70-1.30); EST Glomerular Filtration Rate 67 mL/min (>60); Est Glom Filt Rate - Afr Amer 81 mL/min (>60); Estimated Creatinine Clearance 83.34 ml/min; Globulin 3.4 g/dL (2.2-4.2); Glucose 85 mg/dL (74-106); Lipase 104 U/L (73-393); Potassium 4.8 mmol/L (3.5-5.1); Protein, Total 7.5 g/dL (6.4-8.2); Sodium Level 141 mmol/L (136-145)
--- NOTE | 2019-04-19 12:40 | GALL_PTH ---
PATIENT: VIANEY GOLDEN LOC: [facility] U#:[id number] AGE/SX: 39/M ROOM: RE04/19/[address]: Dr. Vic Bowman MD : 1980 BED: DIS: 04/19/2019 SPEC #: [id number] RECD: 04/19/19 14:40 STATUS: SETVEN JORGITO #: [id number] PERRY: 04/19/19 12:[address]: Vic Bowman DEPT: SURGICAL PATHOLOGY RECD BY: Donnell Blum ENTERED: 04/20/19 07:45 SP TYPE: BURT CORONADO DR: Dr. Gómez Crane MD Tissues: Gallbladder, NOS Procedures: Surgery Specimen Level III HEADER OPERATION: Laparoscopic cholecystectomy with IOC PRE-OP DIAGNOSIS: Biliary dyskinesia, abdominal pain TISSUE SUBMITTED: Gallbladder MICROSCOPIC DIAGNOSIS Gallbladder, cholecystectomy: Mild chronic cholecystitis. No stones are identified in the container or in the gallbladder. SJ:rian 04/21/19 MICROSCOPIC DESCRIPTION Slides are reviewed. GROSS DESCRIPTION Received is one container labeled with the patient's name and designated gallbladder. The specimen consists of a gallbladder measuring 7.5 cm in length and up to 2.5 cm in diameter. The external surface is pink-galaviz, smooth and glistening for the most part. Focally it is granular, hemorrhagic and contains cautery artifact. The gallbladder contains green-yellow mucoid bile. No stones are identified in the container or in the gallbladder. The mucosa is bile-stained and without any mass lesions. The gallbladder wall measures up to 0.3 cm in thickness. An increased amount subserosal fat is noted. Information Receptionist sections from the gallbladder and the cystic duct are submitted in one cassette. / SJ:rian 04/20/19 TC:3 [facility]: [id number]
[2019-04-19] MEDS: Cefazolin 2 GM in 0.9% Normal Saline 100 ML IV (13:05)
--- NOTE | 2019-04-19 13:09 | PCM.OPRPT ---
Problem List (1) Biliary dyskinesia Status: Acute (2) Right upper quadrant abdominal pain Status: Acute Report of Operation Date of Procedure: 04/19/19 Pre-Operative Diagnosis: Biliary dyskinesia. Right upper quadrant abdominal pain Post-Operative Diagnosis: Same Surgery/Procedure Performed:: Upper scopic cholecystectomy with intraoperative cholangiograms Type of Anesthesia:: General Anesthesiologist: Ike Lantigua Specimen's removed: Gallbladder Estimated Blood Loss (mL): < 25 cc Description of Procedure: Patient was brought in the operating room. Placed in the supine position. Under excellent general trach intubation the abdomen was sterilely prepped draped in usual fashion. Local was injected infra umbilically. Dissection was carried down to the fascia. The fascia grasped with a [place]. Varies needle was placed inside the abdomen. The abdomen was insufflated to 15 torr. A 10/12 trocar was placed without difficulty. Patient was placed in the head up and rotated to the left position. The right upper quadrant #5 trocar was placed. Patient had moderate amount of adhesions along the falciform ligament which were all taken down sharply good hemostasis. I did use of electrocautery with this to ensure good hemostasis. Once this was done subxiphoid #5 trochars placed inferior to this another #5 trocar was placed. Both of these under direct visualization without injury to underlying structures. Fundus of the gallbladder was grasped retracted cephalad direction. I dissected out the cystic duct and cystic artery. Placed a Hemoclip proximally on the duct. Jose Guadalupe the duct placed in these Duncan catheter through the skin and a claims Duncan catheter this shot a cholangiogram showing normal ductal anatomy. Cholangiogram catheter was subsequently removed hemoclips were placed distally and the duct was ligated. Deliver the gallbladder from the gallbladder bed with use of electrocautery. I did have some spillage of bile - Admit VTE Documentation VTE Present on Admission: No VTE Mechan Device Prophylaxis: SCD's VTE Pharm Prophylaxis ordered?: No Reason prophylaxis not ordered:: Treatment Not Indicated
--- NOTE | 2019-04-19 13:10 | DCINST_ITS ---
Discharge Diet: Light diet - advance as tolerated Discharge Activity: May Not Drive - for 2-3 days or while taking narcotic pain medications., - - Do not drive, work heavy equipment or sign legal documents for 24 hours. May shower in (days): 1 - with the bandage in place. Additional Activity Instructions:: Pain medication may cause nausea. You should typically eat light foods as you take your pain medications. Pain medication may also cause constipation. If this is a problem for you, please discuss with your doctor. Call your doctor if your incision/area has: Continuous Slow Oozing, Sudden Increased Bleeding, Increased Pain/ Swelling, Increased Redness, Foul Smelling Discharge Call your doctor if you observe: Fever of 101 or Higher Suture Line Care: Avoid Pulling/Pushing, Avoid Pinching/Bending Additional Dressing/Incision Instructions:: Leave operative bandaids on for 2 days. When you remove dressing, leave Steri-Strips on until your follow-up appointment, or until the Steri-Strips fall off on their own. Allergies/Adverse Reactions: Allergies trazodone Allergy (Verified 04/19/19 11:13) Other CAUSED PT TO STOP BREATHING Medications to take at Discharge multivitamin capsule 1 cap PO DAILY 04/18/19 Oxycodone HCl/Acetaminophen [Percocet 5/325] 1 - 2 tab PO Q4H PRN PRN 6 Days #30 tab 04/19/19 The following prescriptions were given: Oxycodone HCl/Acetaminophen [Percocet 5/325] 1 - 2 tab PO Q4H PRN PRN 6 Days #30 tab PRN Reason: Pain Prescription Printed Primary Care Physician: Gómez Crane MD [Primary Care Provider] - Test Results: Test results from this visit will be discussed in further detail at your follow- up appointment, if applicable. Please Follow Up With: Vic Bowman MD - Please call [phone] to schedule an appointment. When: 7 days after your surgery.
--- NOTE | 2019-04-19 13:20 | RAD_ITS ---
STUDY: INTRAOPERATIVE CHOLANGIOGRAM. REASON FOR EXAM: Male, 39 years old. Laparoscopic cholecystectomy. FLUOROSCOPY TIME (if supplied): (0:22) minutes/seconds TECHNIQUE: An intraoperative cholangiogram was performed by the surgeon. Imaging was submitted. COMPARISON: None. FINDINGS: The common bile duct is not dilated. No intraluminal filling defect is seen. There is free flow of contrast into the duodenum. RAD/Cholangiogram/ O R,Initial IMPRESSION: Unremarkable intraoperative cholangiogram. Electronically Signed: Guillermo Ricks, at 14:23 EDT , Service support ,
[2019-04-19] MEDS: Bupivacaine Mpf 0.5% 30 ML VIAL (13:53)
== END 2019-04-19 17:48 | disposition home or self-care (01) ==
LOC: SDC 11:01 → AC 11:03
PROVIDERS: Family Provider Family Medicine; PCP Family Medicine; Referring Provider Surgery; Visit Provider Surgery
PROC: (CPT 47563; principal; 2019-04-19 12:20)
DX: K81.1 Chronic cholecystitis (principal); Z87.442 Personal history of urinary calculi
CPT/HCPCS: 00790; 47563; 36415; 74300; 76000; 80053; 82150; 83690; 85027; 88304; 93005; J7120; J2405

== ENCOUNTER → 2019-07-11 14:09 | Outpatient (CLI) | payer OTHER, SELFPAY ==
[2019-04-19 11:18] VITALS: BMI 26.9
== END ==
PROVIDERS: Family Provider Family Medicine; PCP Family Medicine; Referring Provider Family Medicine; Visit Provider Family Medicine
DX: R30.0 Dysuria (principal)
CPT/HCPCS: 87086

== ENCOUNTER → 2019-07-24 10:45 | Outpatient (CLI) | payer OTHER, SELFPAY ==
[2019-04-19 11:18] VITALS: BMI 26.9
--- NOTE | 2019-07-24 10:55 | RAD_ITS ---
HISTORY: Hx kidney stones EXAM: Abdominal series COMPARISON: Most recent comparison study is an abdominal ultrasound from August 13, 2018 probable 3 mm nonobstructing nephrolith was present within the inferior pole the left kidney on that study. Additional comparison imaging is from a CT scan of June 24, 2016. At least 3 nonobstructing nephroliths are present within the left kidney. Several rows are present within the right kidney. FINDINGS: # of images incl. paperwork: 2 XR Abdomen 1 View: No free air is perceived. No dilated or loops of bowel are seen. There is no mass or suspicious calcification. No evidence of obstruction. RAD/Abdomen Single View IMPRESSION: Normal abdomen. No kidney stones are perceived. 3 mm stones could easily be present and radiolucent on CT due to their size. at 2224 Reported and signed by: Aravind Suarez MD Electronically Signed: Aravind Suarez MD at 22:23 EST Tel , Service support ,
== END ==
PROVIDERS: Family Provider Family Medicine; PCP Family Medicine; Referring Provider Nurse Practitioner Adult Health; Visit Provider Nurse Practitioner Adult Health
DX: R39.89 Other symptoms and signs involving the genitourinary system (principal); Z87.442 Personal history of urinary calculi
CPT/HCPCS: 74018

== ENCOUNTER → 2019-10-17 | Outpatient (CLI) | payer OTHER, SELFPAY ==
[2019-04-19 11:18] VITALS: BMI 26.9
--- NOTE | 2019-10-17 11:45 | RAD_ITS ---
STUDY: X-RAY - PARANASAL SINUSES REASON FOR EXAM: Male, 39 years old. Sinusitis. Right side feels worse than left. TECHNIQUE: 3 view(s) of the paranasal sinuses were obtained. COMPARISON: None. FINDINGS: Normal visualized frontal, maxillary, ethmoidal and sphenoid sinuses. Normal visualized facial bones. The soft tissue structures are unremarkable. RAD/Sinuses min 3 Views IMPRESSION: Normal x-rays of the paranasal sinuses. Electronically Signed: Dmitriy Ontiveros MD at 9:27 EDT , Service support ,
[2019-10-17 15:41] LABS: Absolute Lymphocyte Count 2.12 X10^3/uL (0.83-4.51); Absolute Neutrophil Count 4.7 X10^3/uL (2.0-7.7); Basophil# 0.05 X10^3/uL; Basophil% 0.7 % (0-1); Eosinophil# 0.24 X10^3/uL; Eosinophils% 3.2 % (0-5); Hematocrit 47.8 % (40-54); Hemoglobin 15.6 g/dL (13.0-16.5); Lymphocyte # 2.12 X10^3/ul (4.0); Mean Corp Hgb Conc 32.6 g/dL (32-36); Mean Corpuscular Hgb 28.8 pg (27.0-32.0); Mean Corpuscular Volume 88.2 fL (80-94); Mean Platelet Vol. 9.8 fl (6.2-12.0); Monocyte# 0.44 X10^3/uL; Monocyte% 5.8 % (0-10); NRBC Flagged by Analyzer 0 % (0-5); Platelet Count 242 K/mm3 (150-450); RBC Distribution Width CV 12.3 % (11.6-14.6); RBC Distribution Width SD 40.2 fl (35.1-43.9); Red Blood Count 5.42 M/mm3 (4.6-6.2); White Blood Count 7.6 K/mm3 (4.4-11.0)
[2019-10-17 15:57] LABS: Erythrocyte Sedimentation Rate 3 mm/hr (0-15)
[2019-10-17 16:00] LABS: ALB/GLOB Ratio 1.3 RATIO (0.9-2.4); AST(SGOT) 88 U/L (15-37); Alanine Aminotransfer ALT/SGPT 36 U/L (16-61); Albumin, Serum 4.4 g/dL (3.2-5.0); Alkaline Phosphatase 80 U/L (45-117); Anion Gap 4 (5-15); BUN 13 mg/dL (7-18); BUN/Creat Ratio 11.5 RATIO (10-20); CRP < 2.90 mg/L (0.0-3.0); Chloride 104 mmol/L (98-107); Creatinine, Serum 1.13 mg/dL (0.70-1.30); EST Glomerular Filtration Rate 77 mL/min (>60); Est Glom Filt Rate - Afr Amer 93 mL/min (>60); Globulin 3.5 g/dL (2.2-4.2); Glucose 87 mg/dL (74-106); Potassium 3.9 mmol/L (3.5-5.1); Protein, Total 7.9 g/dL (6.4-8.2); Sodium Level 138 mmol/L (136-145)
[2019-10-17 17:19] LABS: Chlamydia Trachomatis by PCR Negative (Negative); Neisserai gonorrhoeae by PCR Negative (Negative); Probe Check PASS; Sample Adequacy Control PASS; Specimen Processing Control PASS
[2019-10-20 11:06] LABS: Anti-Nuclear Antibody Test Negative (.)
[2019-10-20 14:08] LABS: PROEL- A/G Ratio 1.2 (0.7-1.7); PROEL- Alpha-1 Globulin 0.3 g/dL (0.0-0.4); PROEL- Alpha-2 Globulin 0.9 g/dL (0.4-1.0); PROEL- Beta Globulin 1.2 g/dL (0.7-1.3); PROEL- Globulin, Total 3.3 g/dL (2.2-3.9); PROEL- TOTAL PROTEIN 7.3 g/dL (6.0-8.5); PROELU- Albumin, Urine 30.3 % (.); PROELU- Alpha-1-Globulin,Ur 4.9 % (.); PROELU- Beta Globulin, Ur 27.3 % (.); PROELU- Gamma Globulin, Ur 23.5 % (.); Total Protein, Ur 4.4 mg/dL (Not Estab.)
[2019-10-20 14:43] LABS: Angiotensin Convert Enzyme 39 U/L (14-82)
== END | disposition home or self-care (01) ==
PROVIDERS: PCP Family Medicine; Referring Provider Family Medicine; Visit Provider Family Medicine
DX: J32.9 Chronic sinusitis, unspecified (principal); R53.81 Other malaise; R30.0 Dysuria
CPT/HCPCS: 36415; 70220; 80053; 82164; 84165; 84166; 85025; 85652; 86038; 86140; 87070; 87077; 87186; 87205; 87491; 87591

== ENCOUNTER → 2021-07-25 12:30 | Outpatient (CLI) | payer OTHER, SELFPAY ==
[2021-07-25 12:34] LABS: Lyme Ab Screen Interpretation REF LAB
[2021-07-25 15:20] LABS: Absolute Lymphocyte Count 2.37 X10^3/uL (0.83-4.51); Absolute Neutrophil Count 5.3 X10^3/uL (2.0-7.7); Basophil# 0.04 X10^3/uL; Basophil% 0.5 % (0-1); Eosinophil# 0.36 X10^3/uL; Eosinophils% 4.2 % (0-5); Hematocrit 47.4 % (40-54); Hemoglobin 15.6 g/dL (13.0-16.5); Lymphocyte # 2.37 X10^3/ul (0.83-4.51); Lymphocyte % 27.4 % (19-41); Mean Corp Hgb Conc 32.9 g/dL (32-36); Mean Corpuscular Hgb 28.9 pg (27.0-32.0); Mean Corpuscular Volume 87.9 fL (80-94); Monocyte# 0.54 X10^3/uL; Monocyte% 6.2 % (0-10); NRBC Flagged by Analyzer 0 % (0-5); Neutrophil # 5.32 X10^3/uL (2.7-7.7); Neutrophil % 61.4 % (47-70); Platelet Count 281 K/mm3 (150-450); RBC Distribution Width CV 11.7 % (11.6-14.6); RBC Distribution Width SD 37.5 fl (35.1-43.9); Red Blood Count 5.39 M/mm3 (4.6-6.2); White Blood Count 8.7 K/mm3 (4.4-11.0)
[2021-07-25 15:51] LABS: ALB/GLOB Ratio 1.1 RATIO (0.9-2.4); AST(SGOT) 20 U/L (15-37); Alanine Aminotransfer ALT/SGPT 52 U/L (16-61); Albumin, Serum 4.2 g/dL (3.2-5.0); Alkaline Phosphatase 105 U/L (45-117); Anion Gap 6 (5-15); BUN 15 mg/dL (7-18); BUN/Creat Ratio 13.8 RATIO (10-20); Calcium,Total 9.4 mg/dL (8.5-10.1); Chloride 106 mmol/L (98-107); Creatinine, Serum 1.09 mg/dL (0.70-1.30); EST Glomerular Filtration Rate 79 mL/min (>60); Est Glom Filt Rate - Afr Amer 96 mL/min (>60); Globulin 3.8 g/dL (2.2-4.2); Glucose 89 mg/dL (74-106); Sodium Level 140 mmol/L (136-145); Thyroid Stim Hormone (TSH) 2.32 uIU/mL (0.358-3.74)
[2021-07-28 13:36] LABS: ANTINUCLEAR ANTIBODIES DIRECT Negative (Negative)
[2021-07-28 20:09] LABS: Lyme Scn Total Ab w/Rflx <0.91 ISR (0.00-0.90)
== END ==
PROVIDERS: PCP Family Medicine; Referring Provider Family Medicine; Visit Provider Family Medicine
DX: R20.2 Paresthesia of skin (principal); R63.5 Abnormal weight gain
CPT/HCPCS: 36415; 80053; 82533; 84443; 85025; 86038; 86618

== ENCOUNTER 2021-08-26 12:12 | Outpatient (CLI) | payer OTHER, SELFPAY ==
--- NOTE | 2021-08-26 12:15 | RAD_ITS ---
HISTORY: CHEST PRESSURE EXAMINATION/TECHNIQUE: XR Chest 2 Views: 2 views COMPARISON: 06/26/16 FINDINGS: LINES/DEVICES: None. LUNGS: No pulmonary consolidation, mass, or edema. No pleural effusion or pneumothorax. MEDIASTINUM AND CARDIOVASCULAR STRUCTURES: Cardiac silhouette not enlarged. Central airways and mediastinal contour are unremarkable. BONES AND SOFT TISSUES: No acute bony abnormalities. RAD/Chest PA and Lateral IMPRESSION: No radiographic evidence of acute cardiopulmonary disease. at 0054 Reported and signed by: Scott Mathews MD Electronically Signed: Scott Mathews MD at 0:53 EST Tel , Service support ,
[2021-08-26 15:29] LABS: D-Dimer Quantitative (DVT/PE) <= 0.27 FEU/ug/m (0.27-0.49)
[2021-08-26 15:56] LABS: CPK Total, Creatine Kinase 151 U/L (39-308); CRP, High Sensitivity Cardiac 2.88 mg/L
== END 2021-08-26 23:59 | disposition short-term general hospital (02) ==
LOC: MTLAB 12:13
PROVIDERS: PCP Family Medicine; Referring Provider Family Medicine; Visit Provider Family Medicine
DX: R07.89 Other chest pain (principal)
CPT/HCPCS: 36415; 71046; 82550; 85379; 86141

== ENCOUNTER 2023-12-26 21:39 | Day surgery (SDC) | payer OTHER, SELFPAY ==
[2023-12-26 21:39] VITALS: BP 186/112; PULSE 104; RESP 16; TEMP 36.6; O2SAT 98; BMI 31.1
[2023-12-26] MEDS: Ondansetron 4 MG/2 ML Vial IV (22:36)
[2023-12-26] MEDS: LORazepam 2 MG/ML Syringe 1 MG IV (22:36)
[2023-12-26] MEDS: Morphine 4 MG/ML Syringe IV (22:36)
[2023-12-26] MEDS: 0.9% Normal Saline (1000mL) 1,000 ML 999 ML IV (22:36)
[2023-12-26 22:39] VITALS: BP 163/119; PULSE 80; RESP 16; O2SAT 98
[2023-12-26 23:00] VITALS: BP 164/115; PULSE 80; RESP 16; O2SAT 98
[2023-12-26] MEDS: Glucagon 1 MG/ML Syringe IV (23:46)
[2023-12-27] VITALS (19 sets, daily range): BP systolic 123–161; BP diastolic 87–113; PULSE 69–90; RESP 14–18; TEMP 36.6–36.9; O2SAT 74–100
[2023-12-27] MEDS: Morphine 4 MG/ML Syringe IV (01:12)
[2023-12-27] MEDS: 0.9% Normal Saline (1000mL) 1,000 ML 200 ML IV ×2 (01:12→11:10)
[2023-12-27 01:59] LABS: Absolute Lymphocyte Count 2.45 X10^3/uL (0.83-4.51); Absolute Neutrophil Count 7.3 X10^3/uL (2.0-7.7); Basophil# 0.05 X10^3/uL; Basophil% 0.5 % (0-1); Eosinophil# 0.15 X10^3/uL; Eosinophils% 1.4 % (0-5); Hematocrit 43.7 % (40-54); Hemoglobin 14.1 g/dL (13.0-16.5); Lymphocyte # 2.45 X10^3/ul (0.83-4.51); Mean Corp Hgb Conc 32.3 g/dL (32-36); Mean Corpuscular Hgb 29.4 pg (27.0-32.0); Mean Platelet Vol. 9.9 fl (6.2-12.0); Monocyte# 0.71 X10^3/uL; Monocyte% 6.7 % (0-10); NRBC Flagged by Analyzer 0 % (0-5); Neutrophil # 7.25 X10^3/uL (2.7-7.7); Neutrophil % 68.1 % (47-70); Platelet Count 217 K/mm3 (150-450); RBC Distribution Width CV 12.8 % (11.6-14.6); RBC Distribution Width SD 42.4 fl (35.1-43.9); White Blood Count 10.6 K/mm3 (4.4-11.0)
[2023-12-27 02:14] LABS: Anion Gap 6 (5-15); BUN 15 mg/dL (7-18); BUN/Creat Ratio 13.9 RATIO (10-20); Calcium,Total 8.3 mg/dL (8.5-10.1); Chloride 108 mmol/L (98-107); Creatinine, Serum 1.08 mg/dL (0.70-1.30); EST Glomerular Filtration Rate 79 mL/min (>60); Est Glom Filt Rate - Afr Amer 96 mL/min (>60); Estimated Creatinine Clearance 108.03 ml/min; Glucose 97 mg/dL (74-106); Sodium Level 140 mmol/L (136-145)
--- NOTE | 2023-12-27 05:44 | EX.ED.DYSGE1 ---
HPI History of Present Illness Chief Complaint: Foreign Body Informant: patient Narrative Narrative: Patient is a 43-year-old male who states he has a past medical history of hypertension and gastritis but he does not take medication for either. He states over the years he will have bouts where he feels like a piece of food will get stuck in his throat for 5 to 10 minutes and then resolve. He reports last night he was eating steak around 630 or 7 PM and felt like a piece of the food got lodged in his esophagus. He states that he tried going for a jog and doing jumping jacks and drinking a large amount of water but each time he did so he continued to have bouts of vomiting and as symptoms are not resolving he comes in for evaluation [facility] Medical History (Updated 12/27/23 @ 07:[address] Duane Egan DO) Dyskinesia of gallbladder Change in bowel habits Anxiety GERD (gastroesophageal reflux disease) Asthma Home Medications ?Medication ?Instructions ?Recorded ?Last Taken ?Type multivitamin 1 cap PO DAILY 04/18/19 Unknown History Allergy/AdvReac Type Severity Reaction Status Date / Time trazodone Allergy Other Verified 12/26/23 21:41 Family History Father Hypertension Surgical History (Updated 04/27/19 @ 09:37 by Treva Masterson) S/P laparoscopic cholecystectomy History of oral surgery Social History (Updated 04/27/19 @ 13:10 by Ayde JIMENEZ, PA-C) Smoking Status: Never smoker ROS ROS ED Constitutional Constitutional ED: Denies chills or fever(s) ENT ENT ED: Reports other Details: Positive difficulty swallowing Cardiovascular Cardiovascular: Denies chest pain Respiratory/Chest Respiratory/Chest: Denies cough or dyspnea Gastrointestinal Gastrointestinal: Reports vomiting; Denies abdominal pain, diarrhea or nausea Genitourinary Genitourinary ED: Denies dysuria Musculoskeletal Musculoskeletal: Denies myalgias or neck pain Integumentary Denies rash Neurologic Neurologic: Denies headache(s) Hematologic/Lymphatic Hematologic/Lymphatic: Denies easy bleeding or easy bruising EXAM Physical Exam Const Vital Signs: 12/26/23 21:39 12/26/23 22:39 12/26/23 23:00 Temperature 97.8 F Temperature Source Temporal Pulse Rate 104 H 80 80 Respiratory Rate 16 16 16 Respiratory Pattern Blood Pressure 186/112 H 163/119 H 164/115 H Blood Pressure Mean 136 133 131 Pulse Ox 98 98 98 Oxygen Delivery Method Room Air Room Air Room Air 12/26/23 23:02 12/27/23 00:00 12/27/23 01:00 Temperature Temperature Source Pulse Rate 79 86 Respiratory Rate 16 16 Respiratory Pattern Normal Blood Pressure 155/102 H 156/113 H Blood Pressure Mean 119 127 Pulse Ox 97 98 Oxygen Delivery Method Room Air Room Air 12/27/23 02:00 12/27/23 03:00 12/27/23 04:00 Temperature Temperature Source Pulse Rate 74 69 69 Respiratory Rate 14 18 18 Respiratory Pattern Blood Pressure 141/100 H 132/92 H 139/101 H Blood Pressure Mean 113 105 113 Pulse Ox 96 95 96 Oxygen Delivery Method Room Air Room Air Room Air 12/27/23 05:00 12/27/23 06:00 12/27/23 07:00 Temperature Temperature Source Pulse Rate 70 72 79 Respiratory Rate 16 16 17 Respiratory Pattern Blood Pressure 134/99 H 144/106 H 157/109 H Blood Pressure Mean 110 118 125 Pulse Ox 99 100 98 Oxygen Delivery Method Room Air Room Air Room Air Positive well nourished and well developed General Appearance ED: well developed; Negative for pallor HEENT Reports moist mucous membranes HEENT Narrative: No tongue or lip swelling no oral lesions no airway edema or compromise No signs of infection noted in the posterior pharynx Eyes PERRL and EOMs intact bilaterally General Eye ED: Negative for scleral icterus Neck supple Neck Narrative: No crepitance palpated Chest Wall palpation of chest normal Resp normal respiratory effort and clear to auscultation bilaterally Resp Narrative: No nasal flaring retractions tachypnea or accessory muscle use Cardio regular rate and regular rhythm GI normal to inspection, nondistended, normoactive bowel sounds, non-tender, non-distended and no masses Auscultation: normoactive bowel sounds Palpation: soft Extremity normal to inspection Neuro oriented x3, CN's II-XII intact bilaterally and no sensory deficits noted Sensorium / Orientation: alert Motor Exam: strength 5/5 throughout Psych mental status grossly normal Skin no rashes or lesions noted, no wounds and skin turgor normal General Skin Exam: Negative for jaundice or pallor MDM MDM MDM Narrative Medical decision making narrative: Patient arrived to the ER hypertensive but reports a history of this and states he is not taking any medication for it. Otherwise vitals are stable. He reported swallowing steak and felt like it became lodged in his throat and despite multiple attempts to treat this at home there has been no improvement. The patient could not drink water without having recurrent bouts of vomiting in the ER consistent with an esophageal foreign body. He was given morphine and Ativan then glucagon to relax smooth muscle and despite this there was no passage of the food bolus. Gastroenterology is not on-call this evening but will be on-call in the morning of December 26. He is overall hemodynamically stable and in no acute respiratory distress so the decision was made to watch him in the ER with hopes of spontaneous passage of the food bolus. He was watched overnight but there was no spontaneous resolution and secondary to his GI was contacted and they do agree to take him for EGD to resolve the impaction later today. History & Record Review Discussion w/independent historian: Patient Lab Data Attestation: I reviewed the patient's lab results. Labs: Laboratory Results - last 24 hr 12/27/23 12/27/23 12/27/23 00:35 00:35 01:41 WBC Cancelled 10.6 Corrected WBC Cancelled RBC Cancelled 4.80 Hgb Cancelled 14.1 Hct Cancelled 43.7 MCV Cancelled 91.0 MCH Cancelled 29.4 MCHC Cancelled 32.3 RDW Std Deviation Cancelled 42.4 RDW Coeff of Joe Cancelled 12.8 Plt Count Cancelled 217 MPV Cancelled 9.9 Immature Gran % (Auto) Cancelled 0.300 Neut % (Auto) Cancelled 68.1 Lymph % (Auto) Cancelled 23.0 [place] % (Auto) Cancelled 6.7 Eos % (Auto) Cancelled 1.4 Baso % (Auto) Cancelled 0.5 Absolute Neuts (auto) Cancelled 7.3 Absolute Lymphs (auto) Cancelled 2.45 Total Counted Cancelled Neutrophils % (Manual) Cancelled Band Neutrophils % Cancelled Lymphocytes % (Manual) Cancelled Monocytes % (Manual) Cancelled Eosinophils % (Manual) Cancelled Basophils % (Manual) Cancelled Metamyelocytes % Cancelled Myelocytes % Cancelled Promyelocytes % Cancelled Blast Cells % Cancelled Plasma Cell % (Manual) Cancelled Other Cells % Cancelled Nucleated RBC % Cancelled 0 Nucleated RBCs/100 WBC Cancelled Differential Comment Cancelled Diff Path Review Cancelled Hypersegmented Neuts Cancelled Atypical Lymphocytes Cancelled Reactive Lymphocytes Cancelled Smudge Cells Cancelled Toxic Granulation Cancelled Toxic Vacuolation Cancelled Dohle Bodies Cancelled Matthieu Rods Cancelled Platelet Estimate Cancelled Plt Morphology Comment Cancelled RBC Morphology Cancelled Cancelled Polychromasia Cancelled Hypochromasia Cancelled Basophilic Stippling Cancelled Anisocytosis Cancelled Microcytosis Cancelled Macrocytosis Cancelled Spherocytes Cancelled Sickle Cells Cancelled Target Cells Cancelled Tear Drop Cells Cancelled Ovalocytes Cancelled Stomatocytes Cancelled Vazquez-[place] Bodies Cancelled Jesse Cells Cancelled Bite Cells Cancelled Crenated Cell Cancelled Acanthocytes (Spur) Cancelled Rouleaux Cancelled Schistocytes Cancelled Sodium Cancelled 140 Potassium Cancelled 4.0 Chloride Cancelled 108 H Carbon Dioxide Cancelled 26.0 Anion Gap Cancelled 6 BUN Cancelled 15 Creatinine Cancelled 1.08 Estim Creat Clear Calc Cancelled 108.03 Est GFR (MDRD) Af Amer Cancelled 96 Est GFR (MDRD) Non-Af Cancelled 79 BUN/Creatinine Ratio Cancelled 13.9 Glucose Cancelled 97 Calcium Cancelled 8.3 L Management Discussion w/another healthcare provider: Legal Billing Analyst Discharge Plan Triage Chief Complaint: Foreign Body ED Provider: Duane Egan Dx/Rx/DC Orders Clinical Impression: Esophageal obstruction due to food impaction, Hypertension Prescriptions: No Action multivitamin Capsule 1 cap PO DAILY Primary Care Provider: Gómez Crane Referrals: Gómez Crane MD [Primary Care Provider] - Print Language: Irish Disposition Disposition: Acute Care [facility]
[2023-12-27] MEDS: HYDROmorphone 0.5 MG/0.5 ML SYRINGE IV (06:39)
[2023-12-27] MEDS: Ondansetron 4 MG/2 ML Vial IV ×2 (06:39→10:26)
--- NOTE | 2023-12-27 06:45 | ED.RN ---
pt verbalized frustration that he has been here for so long,stated he wished he would have gone to another hospital.Empathy given and explained the process.Pt stated he understand,but feels very frustrated. Pt refusing to put on a gown until he knows if he is getting scoped or not.
--- NOTE | 2023-12-27 09:02 | NURSING ---
SURGERY FRIEND ESOPHGEAL FOOD IMPACTION
[2023-12-27] MEDS: LORazepam 2 MG/ML Syringe 1 MG IV (09:14)
[2023-12-27] MEDS: Famotidine 200 MG/20 ML MDV 40 MG in 0.9% Normal Saline (Pres. free 6 ML 300 MG IV (10:26)
--- NOTE | 2023-12-27 13:30 | EGD_PTH ---
PATIENT: VIANEY GOLDEN LOC: [facility] [place] U#:[id number] AGE/SX: 43/M ROOM: RE12/27/[address]: Dr. Javier Christian DO : 1980 BED: DIS: 12/27/2023 SPEC #: [id number] RECD: 12/28/23 08:01 STATUS: STEVEN REJoann #: [id number] PERRY: 12/27/23 13:[address]: Javier Christian DEPT: SURGICAL PATHOLOGY RECD BY: Amanda Ko ENTERED: 12/28/23 10:53 SP TYPE: EGD BIOPSY OT DR: Dr. Gómez Crane MD Tissues: A - Esophagus, NOS B - Esophagus, NOS Procedures: Special Stain Group II Special Stain Group I Surgery Specimen Level IV GMS Stain (control) Alcian Blue/PAS (control) HEADER OPERATION: EGD, biopsy PRE-OP DIAGNOSIS: Esophageal obstruction due to food bolus TISSUE SUBMITTED: A- Distal esophagus biopsy, B- Random esophagus biopsy MICROSCOPIC DIAGNOSIS A. Distal esophagus, biopsy: Focal ulceration with associated acute inflammation. Changes of reflux. Negative for fungal organisms. No evidence of goblet cell metaplasia. See comment. B. Esophagus, random biopsy: Fragments of squamous mucosa with changes of reflux. Fragments of food particles with bacteria. No evidence of fungal organisms. See comment. MESFIN/ 12/29/23 COMMENT A. GMS stain with matched control was used in the evaluation of this case. Alcian blue/PAS stain with matched control supports the above diagnosis. B. GMS stain with matched control was used in the evaluation of this case. Eosinophils number approximately 7 per high-power cruz. Clinical correlation is suggested. MICROSCOPIC DESCRIPTION Slides are reviewed. GROSS DESCRIPTION A. Received in fixative is one container labeled with the patient's name and designated Distal esophagus biopsy. The specimen consists of multiple irregular fragments of light galaviz soft tissue that in aggregate measure 1.0 x 0.2 x 0.1 cm. The specimen is totally submitted in one cassette. B. Received in fixative is one container labeled with the patient's name and designated Random esophagus biopsy. The specimen consists of multiple irregular fragments of light galaviz soft tissue that in aggregate measure 1.0 x 0.2 x 0.1 cm. The specimen is totally submitted in one cassette. Gurinder 12/28/2023 TC:2 CPT:[id number]
--- NOTE | 2023-12-27 15:12 | PCM.HP.BLA ---
History and Physical Date of Admission: 12/27/23 Chief Complaint: Foreign Body Informant: patient Narrative Narrative: Patient is a 43-year-old male who states he has a past medical history of hypertension and gastritis but he does not take medication for either. He states over the years he will have bouts where he feels like a piece of food will get stuck in his throat for 5 to 10 minutes and then resolve. He reports last night he was eating steak around 630 or 7 PM and felt like a piece of the food got lodged in his esophagus. He states that he tried going for a jog and doing jumping jacks and drinking a large amount of water but each time he did so he continued to have bouts of vomiting and as symptoms are not resolving he comes in for evaluation [facility] Medical History (Updated 12/27/23 @ 07:[address] Duane Egan DO) Dyskinesia of gallbladder Change in bowel habits Anxiety GERD (gastroesophageal reflux disease) Asthma Home Medications ?Medication ?Instructions ?Recorded ?Last Taken ?Type multivitamin 1 cap PO DAILY 04/18/19 Unknown History Allergy/AdvReac Type Severity Reaction Status Date / Time trazodone Allergy Other Verified 12/26/23 21:41 Family History Father Hypertension Surgical History (Updated 04/27/19 @ 09:37 by Treva Masterson) S/P laparoscopic cholecystectomy History of oral surgery Social History (Updated 04/27/19 @ 13:10 by BARBARA Starr-Sanna) Smoking Status: Never smoker ROS ROS ED Constitutional Constitutional ED: Denies chills or fever(s) ENT ENT ED: Reports other Details: Positive difficulty swallowing Cardiovascular Cardiovascular: Denies chest pain Respiratory/Chest Respiratory/Chest: Denies cough or dyspnea Gastrointestinal Gastrointestinal: Reports vomiting; Denies abdominal pain, diarrhea or nausea Genitourinary Genitourinary ED: Denies dysuria Musculoskeletal Musculoskeletal: Denies myalgias or neck pain Integumentary Denies rash Neurologic Neurologic: Denies headache(s) Hematologic/Lymphatic Hematologic/Lymphatic: Denies easy bleeding or easy bruising EXAM Physical Exam Const Vital Signs: 12/25/2420:39 12/25/2421:39 12/25/2422:00 Temperature 97.8 F Temperature Source Temporal Pulse Rate 104 H 80 80 Respiratory Rate 16 16 16 Respiratory Pattern Blood Pressure 186/112 H 163/119 H 164/115 H Blood Pressure Mean 136 133 131 Pulse Ox 98 98 98 Oxygen Delivery Method Room Air Room Air Room Air 12/25/2422:02 12/27/2399:00 12/26/2400:00 Temperature Temperature Source Pulse Rate 79 86 Respiratory Rate 16 16 Respiratory Pattern Normal Blood Pressure 155/102 H 156/113 H Blood Pressure Mean 119 127 Pulse Ox 97 98 Oxygen Delivery Method Room Air Room Air 12/26/2401:00 12/26/2402:00 12/27/2403:00 Temperature Temperature Source Pulse Rate 74 69 69 Respiratory Rate 14 18 18 Respiratory Pattern Blood Pressure 141/100 H 132/92 H 139/101 H Blood Pressure Mean 113 105 113 Pulse Ox 96 95 96 Oxygen Delivery Method Room Air Room Air Room Air 12/26/2404:00 12/26/2405:00 12/26/2406:00 Temperature Temperature Source Pulse Rate 70 72 79 Respiratory Rate 16 16 17 Respiratory Pattern Blood Pressure 134/99 H 144/106 H 157/109 H Blood Pressure Mean 110 118 125 Pulse Ox 99 100 98 Oxygen Delivery Method Room Air Room Air Room Air Positive well nourished and well developed General Appearance ED: well developed; Negative for pallor HEENT Reports moist mucous membranes HEENT Narrative: No tongue or lip swelling no oral lesions no airway edema or compromise No signs of infection noted in the posterior pharynx Eyes PERRL and EOMs intact bilaterally General Eye ED: Negative for scleral icterus Neck supple Neck Narrative: No crepitance palpated Chest Wall palpation of chest normal Resp normal respiratory effort and clear to auscultation bilaterally Resp Narrative: No nasal flaring retractions tachypnea or accessory muscle use Cardio regular rate and regular rhythm GI normal to inspection, nondistended, normoactive bowel sounds, non-tender, non-distended and no masses Auscultation: normoactive bowel sounds Palpation: soft Extremity normal to inspection Neuro oriented x3, CN's II-XII intact bilaterally and no sensory deficits noted Sensorium / Orientation: alert Motor Exam: strength 5/5 throughout Psych mental status grossly normal Skin no rashes or lesions noted, no wounds and skin turgor normal General Skin Exam: Negative for jaundice or pallor MDM MDM MDM Narrative Medical decision making narrative: Patient arrived to the ER hypertensive but reports a history of this and states he is not taking any medication for it. Otherwise vitals are stable. He reported swallowing steak and felt like it became lodged in his throat and despite multiple attempts to treat this at home there has been no improvement. The patient could not drink water without having recurrent bouts of vomiting in the ER consistent with an esophageal foreign body. He was given morphine and Ativan then glucagon to relax smooth muscle and despite this there was no passage of the food bolus. Gastroenterology is not on-call this evening but will be on-call in the morning of December 26. He is overall hemodynamically stable and in no acute respiratory distress so the decision was made to watch him in the ER with hopes of spontaneous passage of the food bolus. He was watched overnight but there was no spontaneous resolution and secondary to his GI was contacted and they do agree to take him for EGD to resolve the impaction later today. History & Record Review Discussion w/independent historian: Patient Lab Data Attestation: I reviewed the patient's lab results. Labs: Laboratory Results - last 24 hr 12/27/23 12/27/23 12/27/23 00:35 00:35 01:41 WBC Cancelled 10.6 Corrected WBC Cancelled RBC Cancelled 4.80 Hgb Cancelled 14.1 Hct Cancelled 43.7 MCV Cancelled 91.0 MCH Cancelled 29.4 MCHC Cancelled 32.3 RDW Std Deviation Cancelled 42.4 RDW Coeff of Joe Cancelled 12.8 Plt Count Cancelled 217 MPV Cancelled 9.9 Immature Gran % (Auto) Cancelled 0.300 Neut % (Auto) Cancelled 68.1 Lymph % (Auto) Cancelled 23.0 [place] % (Auto) Cancelled 6.7 Eos % (Auto) Cancelled 1.4 Baso % (Auto) Cancelled 0.5 Absolute Neuts (auto) Cancelled 7.3 Absolute Lymphs (auto) Cancelled 2.45 Total Counted Cancelled Neutrophils % (Manual) Cancelled Band Neutrophils % Cancelled Lymphocytes % (Manual) Cancelled Monocytes % (Manual) Cancelled Eosinophils % (Manual) Cancelled Basophils % (Manual) Cancelled Metamyelocytes % Cancelled Myelocytes % Cancelled Promyelocytes % Cancelled Blast Cells % Cancelled Plasma Cell % (Manual) Cancelled Other Cells % Cancelled Nucleated RBC % Cancelled 0 Nucleated RBCs/100 WBC Cancelled Differential Comment Cancelled Diff Path Review Cancelled Hypersegmented Neuts Cancelled Atypical Lymphocytes Cancelled Reactive Lymphocytes Cancelled Smudge Cells Cancelled Toxic Granulation Cancelled Toxic Vacuolation Cancelled Dohle Bodies Cancelled Matthieu Rods Cancelled Platelet Estimate Cancelled Plt Morphology Comment Cancelled RBC Morphology Cancelled Cancelled Polychromasia Cancelled Hypochromasia Cancelled Basophilic Stippling Cancelled Anisocytosis Cancelled Microcytosis Cancelled Macrocytosis Cancelled Spherocytes Cancelled Sickle Cells Cancelled Target Cells Cancelled Tear Drop Cells Cancelled Ovalocytes Cancelled Stomatocytes Cancelled Vazquez-Sabinal Bodies Cancelled Jesse Cells Cancelled Bite Cells Cancelled Crenated Cell Cancelled Acanthocytes (Spur) Cancelled Rouleaux Cancelled Schistocytes Cancelled Sodium Cancelled 140 Potassium Cancelled 4.0 Chloride Cancelled 108 H Carbon Dioxide Cancelled 26.0 Anion Gap Cancelled 6 BUN Cancelled 15 Creatinine Cancelled 1.08 Estim Creat Clear Calc Cancelled 108.03 Est GFR (MDRD) Af Amer Cancelled 96 Est GFR (MDRD) Non-Af Cancelled 79 BUN/Creatinine Ratio Cancelled 13.9 Glucose Cancelled 97 Calcium Cancelled 8.3 L Assessment & Plan Assessment/Plan (1) Esophageal obstruction due to food impaction: PLAN: He will undergo an upper endoscopy to evaluate his upper GI tract. He was explained alternatives, risk, benefits including not withstanding bleeding, infection, sepsis, perforation, need for emergent and . He will have an ASA of 3.
--- NOTE | 2023-12-27 15:28 | OP.CCLET_ITS ---
12/27/2023 Gómez Crane [address] [place] [address] Re : Upper GI endoscopy procedure for He Mcelroy Dear Dr. Crane This procedure was performed on Wednesday, December 27, 2023. My impressions and recommendations are as follows: Impressions : - Esophageal mucosal changes consistent with eosinophilic esophagitis. - Food at the gastroesophageal junction. Removal was successful. - Severe Schatzki ring. Dilated. - Biopsies were taken with a cold forceps for evaluation of eosinophilic esophagitis. Recommendations : - Discharge patient to home. - Full liquid diet. - Continue present medications. - Await pathology results. - Repeat upper endoscopy for surveillance. My findings are described in the full procedure note, which is enclosed. If I can be of further assistance, please feel free to contact me at . Sincerely, Javier Christian, 12/27/2023 3:27:41 PM This report has been signed electronically.
--- NOTE | 2023-12-27 15:28 | OP.EGD_ITS ---
Patient Name: He Mcelroy Procedure Date: 12/27/2023 2:25 PM Date of : 1980 Age: 43 Procedure: Upper GI endoscopy Indications: Dysphagia Providers: Javier Christian DO Medicines: Monitored Anesthesia Care Patient Profile: This is a 43 year old male. Refer to note in patient chart for documentation of history and physical. Patient has symptoms of acute dysphagia. Complications: No immediate complications. Procedure: Pre-Anesthesia Assessment: - Prior to the procedure, a History and Physical was performed, and patient medications and allergies were reviewed. The patient is competent. The risks and benefits of the procedure and the sedation options and risks were discussed with the patient. All questions were answered and informed consent was obtained. Patient identification and proposed procedure were verified by the physician in the pre-procedure area. Mental Status Examination: alert and oriented. Airway Examination: normal oropharyngeal airway and neck mobility. Respiratory Examination: clear to auscultation. CV Examination: normal. Prophylactic Antibiotics: The patient does not require prophylactic antibiotics. Prior Anticoagulants: The patient has taken no anticoagulant or antiplatelet agents. ASA Grade Assessment: II - A patient with mild systemic disease. After reviewing the risks and benefits, the patient was deemed in satisfactory condition to undergo the procedure. The anesthesia plan was to use monitored anesthesia care (MAC). Immediately prior to administration of medications, the patient was re-assessed for adequacy to receive sedatives. The heart rate, respiratory rate, oxygen saturations, blood pressure, adequacy of pulmonary ventilation, and response to care were monitored throughout the procedure. The physical status of the patient was re-assessed after the procedure. After obtaining informed consent, the endoscope was passed under direct vision. Throughout the procedure, the patient's blood pressure, pulse, and oxygen saturations were monitored continuously. The Endoscope was introduced through the mouth, and advanced to the second part of duodenum. The upper GI endoscopy was accomplished without difficulty. The patient tolerated the procedure well. Scope In: 3:16:36 PM Scope Out: 3:19:35 PM Total Procedure Duration Time 0 hours 2 minutes 59 seconds Findings: Mucosal changes including ringed esophagus, feline appearance, longitudinal furrows, small-caliber esophagus and white plaques were found in the entire esophagus. Esophageal findings were graded using the Eosinophilic Esophagitis Endoscopic Reference Score (EoE-EREFS) as: Edema Grade 1 Present (decreased clarity or absence of vascular markings), Rings Grade 1 Mild (subtle circumferential ridges seen on esophageal distension), Exudates Grade 1 Mild (scattered white lesions involving less than 10 percent of the esophageal surface area), Furrows Grade 1 Mild (vertical lines without visible depth) and Stricture present. Biopsies were obtained from the proximal and distal esophagus with cold forceps for histology of suspected eosinophilic esophagitis. Verification of patient identification for the specimen was done. Estimated blood loss was minimal. Food was found at the gastroesophageal junction. Removal was accomplished with a jumbo forceps. Verification of patient identification for the specimen was done. Estimated blood loss was minimal. A severe Schatzki ring was found in the lower third of the esophagus. A guidewire was placed and the scope was withdrawn. Dilation was performed with a Savary dilator with no resistance at 51 Fr. The dilation site was examined and showed moderate mucosal disruption. Estimated blood loss was minimal. Impression: - Esophageal mucosal changes consistent with eosinophilic esophagitis. - Food at the gastroesophageal junction. Removal was successful. - Severe Schatzki ring. Dilated. - Biopsies were taken with a cold forceps for evaluation of eosinophilic esophagitis. Recommendation: - Discharge patient to home. - Full liquid diet. - Continue present medications. - Await pathology results. - Repeat upper endoscopy for surveillance. Procedure Code(s): --- Professional --- 26768, Esophagogastroduodenoscopy, flexible, transoral; with removal of foreign body(s) 68064, 51, Esophagogastroduodenoscopy, flexible, transoral; with insertion of guide wire followed by passage of dilator(s) through esophagus over guide wire 34468, 59, Esophagogastroduodenoscopy, flexible, transoral; with biopsy, single or multiple CPT copyright 2021 [employer]. All rights reserved. The codes documented in this report are preliminary and upon pan cleaner review may be revised to meet current compliance requirements. Javier Christian DO 12/27/2023 3:27:41 PM This report has been signed electronically. Number of Addenda: 0 Note Initiated On: 12/27/2023 2:25 PM
[2023-12-27] MEDS: Pantoprazole Sodium 40 MG in 0.9% Normal Saline (100mL MB+) 100 ML 330 MG IV (15:36)
== END 2023-12-27 16:06 | disposition home or self-care (01) ==
LOC: ED 12-27 08:35 → SDC 12-27 09:49 → AC 12-27 09:50 → ACINP 12-27 10:59
PROVIDERS: Emergency Provider Emergency Medicine; PCP Family Medicine; Visit Provider Internal Medicine Gastroenterology
PROC: 0DJ08ZZ Inspection of Upper Intestinal Tract, Via Natural or Artificial Opening Endoscopic (ICD-10-PCS; CPT 43235; principal; 2023-12-27 13:25)
DX: T18.128A Food in esophagus causing other injury, initial encounter (principal); K22.2 Esophageal obstruction; I10 Essential (primary) hypertension; K21.00 Gastro-esophageal reflux disease with esophagitis, without bleeding; J45.909 Unspecified asthma, uncomplicated; Z90.49 Acquired absence of other specified parts of digestive tract; W44.F3XA Food entering into or through a natural orifice, initial encounter; K22.10 Ulcer of esophagus without bleeding
CPT/HCPCS: 43247; 43239; 43248; 80048; 85025; 88305; 88312; 88313; 99283; J7030; A4216; J1610; J2405; J3490